=== PATIENT | male | born 1970 | race Two or more races ===

== ENCOUNTER 2018-02-23 10:25 | Emergency (ER) | payer MEDICAID ==
[~2018-02-23] VITALS: Ht 182.9 cm; Wt 87.5 kg
[2018-02-23 10:38] VITALS: BP 121/71
[2018-02-23] MEDS ORDERED: TETANUS-DIPTH-ACEL PERTUSSIS 0.5ML SYRG IM ONE (13:15)
== END 2018-02-23 13:31 | disposition home or self-care (01) ==
LOC: ER 10:33
DX: S01.01XA Laceration without foreign body of scalp, initial encounter (principal); W22.8XXA Striking against or struck by other objects, initial encounter; Y93.89 Activity, other specified; Y92.89 Other specified places as the place of occurrence of the external cause; Y99.8 Other external cause status
CPT/HCPCS: 12001; 90471; 90715

== ENCOUNTER 2022-12-17 19:15 | Inpatient (IN) | payer MEDICAID ==
[~2022-12-17] VITALS: Ht 175.3 cm; Wt 78.1 kg
[2022-12-17] MEDS ORDERED: IOHEXOL 300 MG/ML 100ML BOTTLE IJ ONE (20:44)
[2022-12-17 21:25] LABS: Albumin 3.3 g/dL (3.4-5.0); BUN/Creatinine Ratio 12.2; Calcium 8.8 mg/dL (8.5-10.1); Potassium 3.9 mmol/L (3.5-5.1)
[2022-12-17 21:28] LABS: Bilirubin, Total 0.5 mg/dL (0.2-1.0); Total Protein 7.9 g/dL (6.4-8.2)
[2022-12-17 21:35] LABS: Basophils # (auto) 0.1 10 ^3/uL (0-0.2); Basophils % (auto) 0.9 % (0.0-2.0); Eosinophils # (auto) 0.7 10 ^3/uL (0-0.8); Eosinophils % (auto) 6.5 % (0.0-7.0); Hematocrit 40.5 % (41.0-53.0); Hemoglobin 14.4 g/dL (13.5-17.5); Lymphocytes # (auto) 3.2 10 ^3/uL (0.4-5.4); Lymphocytes % (auto) 30.9 % (10.0-50.0); Mean Corpuscular Hgb Conc. 35.6 g/dL (32.0-36.0); Mean Corpuscular Volume 87.2 fL (80.0-100.0); Monocytes # (auto) 0.8 10 ^3/uL (0-1.3); Monocytes % (auto) 7.3 % (0.0-12.0); Neutrophils # (auto) 5.6 10 ^3/uL (1.6-8.6); Neutrophils % (auto) 54.4 % (37.0-80.0); Nucleated Red Blood Cells % 0.3 %; Red Blood Cells 4.64 10^6/uL (4.5-5.90); Red Cell Distribution Width 13.2 % (11.8-14.3); White Blood Cell 10.2 10^3/uL (4.4-10.8)
[2022-12-17 21:41] LABS: Urine Bacteria FEW /hpf (None Seen); Urine Blood TRACE /uL (Negative); Urine Specific Gravity 1.018 (1.001-1.035); Urine WBC 2 /hpf (0 - 3)
[2022-12-18] MEDS ORDERED: MORPHINE SULFATE INJ 2 MG/ml SYRG IV PRN ×2 (02:30)
[2022-12-18] MEDS ORDERED: ACETAMINOPHEN 325 MG TAB PO PRN (02:30)
[2022-12-18] MEDS ORDERED: NITROGLYCERIN 0.4 MG SL TAB SL PRN (02:30)
[2022-12-18] MEDS ORDERED: ONDANSETRON HCL 4 MG/2 ML VIAL IV PRN (02:30)
[2022-12-18 05:35] LABS: Basophils # (auto) 0.1 10 ^3/uL (0-0.2); Eosinophils # (auto) 0.6 10 ^3/uL (0-0.8); Eosinophils % (auto) 7.4 % (0.0-7.0); Hematocrit 38.2 % (41.0-53.0); Hemoglobin 13.2 g/dL (13.5-17.5); Lymphocytes # (auto) 2.3 10 ^3/uL (0.4-5.4); Lymphocytes % (auto) 27.3 % (10.0-50.0); Mean Corpuscular Hemoglobin 30.1 pg (28.0-32.0); Mean Corpuscular Hgb Conc. 34.5 g/dL (32.0-36.0); Mean Corpuscular Volume 87.3 fL (80.0-100.0); Monocytes # (auto) 0.7 10 ^3/uL (0-1.3); Monocytes % (auto) 8.1 % (0.0-12.0); Neutrophils # (auto) 4.8 10 ^3/uL (1.6-8.6); Neutrophils % (auto) 56.2 % (37.0-80.0); Nucleated Red Blood Cells % 0.2 %; Red Blood Cells 4.38 10^6/uL (4.5-5.90); Red Cell Distribution Width 13.1 % (11.8-14.3); White Blood Cell 8.5 10^3/uL (4.4-10.8)
[2022-12-18 05:51] LABS: Albumin 3.2 g/dL (3.4-5.0); Potassium 4.2 mmol/L (3.5-5.1)
[2022-12-18 05:58] LABS: BUN/Creatinine Ratio 10.3; Bilirubin, Total 0.7 mg/dL (0.2-1.0); Calcium 8.9 mg/dL (8.5-10.1); Total Protein 7.5 g/dL (6.4-8.2)
[2022-12-18] MEDS: PANTOPRAZOLE 40 MG/10 ML VIAL INJ IV SCH (10:39)
[2022-12-18] MEDS ORDERED: GOLYTELY 4L KIT PO ONE (21:45)
[2022-12-18] MEDS ORDERED: POLYETHYLENE GLYCOL 17 GM PWDR PO ONE (21:45)
[2022-12-18 23:19] VITALS: BP 119/76
[2022-12-19] MEDS: PANTOPRAZOLE 40 MG/10 ML VIAL INJ IV SCH ×3 (00:31→23:16)
[2022-12-19 01:07] VITALS: BP 119/76
[2022-12-19 05:00] VITALS: BP 127/78
[2022-12-19 05:13] LABS: Basophils # (auto) 0.1 10 ^3/uL (0-0.2); Basophils % (auto) 0.8 % (0.0-2.0); Eosinophils # (auto) 0.5 10 ^3/uL (0-0.8); Eosinophils % (auto) 4.7 % (0.0-7.0); Hematocrit 42.4 % (41.0-53.0); Hemoglobin 15.1 g/dL (13.5-17.5); Lymphocytes # (auto) 1.8 10 ^3/uL (0.4-5.4); Lymphocytes % (auto) 16.6 % (10.0-50.0); Mean Corpuscular Hemoglobin 31.2 pg (28.0-32.0); Mean Corpuscular Hgb Conc. 35.6 g/dL (32.0-36.0); Mean Corpuscular Volume 87.5 fL (80.0-100.0); Monocytes # (auto) 0.7 10 ^3/uL (0-1.3); Monocytes % (auto) 6.2 % (0.0-12.0); Neutrophils # (auto) 7.8 10 ^3/uL (1.6-8.6); Neutrophils % (auto) 71.7 % (37.0-80.0); Nucleated Red Blood Cells % 1.2 %; Red Blood Cells 4.85 10^6/uL (4.5-5.90); Red Cell Distribution Width 13.3 % (11.8-14.3); White Blood Cell 10.9 10^3/uL (4.4-10.8)
[2022-12-19 05:31] LABS: INR 1.06 (0.9-1.15); Partial Thromboplastin Time 26.3 sec (24.6-33.4)
[2022-12-19 05:39] LABS: Albumin 3.5 g/dL (3.4-5.0); Calcium 8.9 mg/dL (8.5-10.1); Potassium 3.9 mmol/L (3.5-5.1)
[2022-12-19 05:43] LABS: Bilirubin, Total 0.8 mg/dL (0.2-1.0); Total Protein 8.2 g/dL (6.4-8.2)
[2022-12-19] MEDS ORDERED: GOLYTELY 4L KIT PO ONE (06:00)
[2022-12-19 08:00] VITALS: BP 128/55
[2022-12-19 09:00] VITALS: BP 122/81
[2022-12-19 17:00] VITALS: BP 106/69
[2022-12-19 22:00] VITALS: BP 120/74
[2022-12-19] MEDS: HYDROcodone-ACET 5/325MG TAB PO PRN (23:17)
[2022-12-20] MEDS ORDERED: POLYETHYLENE GLYCOL 17 GM PWDR PO ONE (04:15)
[2022-12-20 05:00] VITALS: BP 104/73
[2022-12-20 08:00] VITALS: BP 112/75
[2022-12-20 08:39] VITALS: BP 112/75
[2022-12-20] MEDS: PANTOPRAZOLE 40 MG/10 ML VIAL INJ IV SCH ×2 (09:40→23:01)
[2022-12-20 13:00] VITALS: BP 106/67
[2022-12-20] MEDS ORDERED: NALOXONE HCL 0.4 MG/ML VIAL ONE (13:11)
[2022-12-20] MEDS ORDERED: FLUMAZENIL 0.1 MG/ML INJ 10ML MDV IV ONE (13:11)
[2022-12-20] MEDS: diphenhdrAMINE HCL 50 MG/1 ML VL ONE ×2 (14:10→14:12)
[2022-12-20] MEDS: fentaNYL CITRATE 100 MCG/2 ML VL ONE ×3 (14:10→14:18)
[2022-12-20] MEDS: MIDAZOLAM HCL 2MG/2ML 2ml VIAL (1mg/ml) ONE ×3 (14:10→14:18)
[2022-12-20 14:30] LABS: Hepatitis C Antibody Negative (Negative)
[2022-12-20 16:37] VITALS: BP 118/79
[2022-12-20] MEDS: HYDROcodone-ACET 5/325MG TAB PO PRN (20:01)
[2022-12-20 22:00] VITALS: BP 109/74
[2022-12-21 05:00] VITALS: BP 115/77
[2022-12-21 09:00] VITALS: BP 102/64
[2022-12-21] MEDS: PANTOPRAZOLE 40 MG/10 ML VIAL INJ IV SCH (10:09)
[2022-12-21 13:00] VITALS: BP 108/75
[2022-12-21 14:09] VITALS: BP 102/64
== END 2022-12-21 15:15 | disposition home or self-care (01) | DRG 253 ==
LOC: ER 19:15 → OVERFLOW 12-18 02:27 → WEST WING 12-18 22:45
PROVIDERS: ADMIT Nurse Practitioner Family; ATTEND Internal Medicine
PROC: 0DBN8ZX Excision of Sigmoid Colon, Via Natural or Artificial Opening Endoscopic, Diagnostic (ICD-10-PCS; principal; 2022-12-20 14:07)
DX: K92.2 Gastrointestinal hemorrhage, unspecified (principal); K63.3 Ulcer of intestine; K62.9 Disease of anus and rectum, unspecified; R31.9 Hematuria, unspecified; Z53.09 Procedure and treatment not carried out because of other contraindication; Z20.822 Contact with and (suspected) exposure to COVID-19; Z80.0 Family history of malignant neoplasm of digestive organs
CPT/HCPCS: 36415; 71045; 74177; 80053; 81001; 82270; 82378; 83690; 85025; 85610; 85730; 86803; 86850; 86900; 86901; 87081; 87340; 87426; C9113; G0378; J2250